=== PATIENT | female | born 1995 | race Two or more races ===

== ENCOUNTER 2020-07-21 07:40 | Emergency (ER) | payer SELFPAY ==
[~2020-07-21] VITALS: Ht 154.9 cm; Wt 104.3 kg
[2020-07-21 07:49] VITALS: BP 131/89
[2020-07-21] MEDS ORDERED: SODIUM CHLORIDE 0.9% 1,000 ML IVB ONE (09:15)
== END 2020-07-21 09:03 | disposition left against medical advice (07) ==
LOC: ER 07:40
DX: F10.230 Alcohol dependence with withdrawal, uncomplicated (principal); F41.9 Anxiety disorder, unspecified; F17.210 Nicotine dependence, cigarettes, uncomplicated